=== PATIENT | male | born 1990 | race Caucasian/White ===

== ENCOUNTER 2018-03-24 10:58 | Emergency (ER) | payer OTHER ==
[2018-03-24] MEDS ORDERED: NS 0.9% 1000 ML* 1,000 ML IV ONE (11:26)
[2018-03-24] MEDS ORDERED: Morphine INJ* 4 MG/ML 1 ML CARPUJECT IV ONE (11:26)
[2018-03-24 11:57] LABS: ABS Basophils 0 10^3/ul (0-0.2); ABS Eosinophils 0 10^3/ul (0-0.6); ABS Monocytes 0.6 10^3/ul (0-0.8); ABS Neutrophils 11.5 10^3/ul (1.5-7.7); ABS Nucleated RBC 0 10^3/ul; Eosinophil % 0.3 % (0-6); Hematocrit 45 % (42-52); Hemoglobin 15.4 g/dl (14.0-18.0); Lymphocyte % 7.5 % (25-47); Mean Corpuscular HGB Conc 34 g/dl (31-36); Mean Corpuscular Hemoglobin 30 pg (27-31); Mean Corpuscular Volume 88 fL (80-94); Mean Platelet Volume 7.2 um3 (7.4-10.4); Nucleated Red Blood Cells % 0; Platelet Count 331 10^3/ul (150-450); Red Blood Count 5.11 10^6/ul (4.0-5.4); Red Cell Distribution Width 14 % (10.5-15); White Blood Count 13.1 10^3/ul (3.5-10.8)
[2018-03-24 12:15] LABS: EGFR Non-African American 125.9 (>60)
[2018-03-24] MEDS ORDERED: Morphine VIAL* 4 MG/ML VIAL (1 ml vial) IV ONE (12:15)
[2018-03-24] MEDS ORDERED: Iohexol 300* (CONTRAST) 10 ML SDV IV ONE (12:33)
--- NOTE | 2018-03-24 13:14 | RAD ---
HISTORY: Fall COMPARISONS: None TECHNIQUE: Multiple contiguous axial CT scans were obtained of the head without intravenous contrast. FINDINGS: HEMORRHAGE/INFARCT: There is no hemorrhage or acute infarct. MASSES/SHIFT: There is no mass or shift. EXTRA-AXIAL SPACES: There are no extra-axial fluid collections. SULCI AND VENTRICLES: The sulci and ventricles are normal in size and position for the patient's stated age. CEREBRUM: There are no focal parenchymal abnormalities. BRAINSTEM: There are no focal parenchymal abnormalities. CEREBELLUM: There are no focal parenchymal abnormalities. VESSELS: The vessels are grossly normal. PARANASAL SINUSES: The paranasal sinuses are clear. ORBITS: The orbits are unremarkable. BONES AND SOFT TISSUE: No bone or soft tissue abnormalities are noted. OTHER: None IMPRESSION: NO ACUTE INTRACRANIAL PATHOLOGY.
--- NOTE | 2018-03-24 13:31 | RAD ---
HISTORY: Fall COMPARISONS: None TECHNIQUE: Multiple contiguous axial CT scans were obtained of the cervical spine without intravenous contrast, with coronal and sagittal multiplanar reformations. FINDINGS: BRAIN: The visualized brain is unremarkable CENTRAL CANAL: Evaluation of the central canal is limited on CT technique, however there is no obvious canalicular mass or epidural hemorrhage. ALIGNMENT: There is straightening of the normal cervical lordosis. VERTEBRAL BODIES: The odontoid process is intact. The atlantoaxial intervals are symmetric. The vertebral bodies are normal in attenuation, without fracture. JOINTS: There is no subluxation or dislocation MUSCULATURE: Unremarkable INTERVERTEBRAL DISCS: The intervertebral disc spaces are relatively preserved in height. AXIAL IMAGES: On axial images, there is no osseous neural foraminal narrowing or central canal stenosis. SOFT TISSUES: The visualized soft tissues of the neck are unremarkable. The prevertebral fat stripe is preserved. OTHER: None. IMPRESSION: NO ACUTE OSSEOUS INJURY OF THE CERVICAL SPINE
--- NOTE | 2018-03-24 13:44 | RAD ---
INDICATION: Fall from 15 feet. COMPARISON: No relevant prior exams available on the [facility] [place] PACS for comparison. TECHNIQUE: Multidetector CT images were obtained from the lung apices to the ischial tuberosities with 140 mL Omnipaque 300 IV contrast. No oral contrast administered. CHEST REPORT: Negative for pulmonary contusion, pleural effusion, or pneumothorax. 1.1 cm maximum dimension nodule at the apical posterior segment of the LEFT upper lobe anteriorly with a prominent feeding pulmonary artery and draining vein is suspicious for a potential AV malformation. Small focus of calcification within the nodule was suggested may represent a hamartoma. 0.4 cm noncalcified nodule at the lateral basal segment of the LEFT lower lobe is low suspicion based on small size and location. Negative for mediastinal hematoma or pericardial effusion. Negative for cardiomegaly. Accounting for motion artifact there is no abnormality of the thoracic aorta. Negative for thoracic lymphadenopathy. Negative for sternal, rib, or other thoracic fracture within the [id number]. Normal articular alignment. Negative for superficial soft tissue plane hematoma. CHEST IMPRESSION: 1. No CT evidence for traumatic thoracic injury. 2. LEFT upper lobe nodule while nonspecific may represent a hamartoma or AV malformation. As the nodule is borderline in size for assessment with PET CT consider reassessment with noncontrast CT in 3 months time in absence of prior exams to document stability with none available on the [facility] [place] PACS. ABDOMEN PELVIS REPORT: The liver, gallbladder, pancreas, and spleen are unremarkable. Small splenule approximating the posterior margin of the spleen. No CT abnormality of the unopacified upper GI, small bowel, appendix visualized lateral to the cecum, or colon evident. Negative for free intraperitoneal fluid or air. Negative for hernias. Normal adrenal glands. Unremarkable kidneys with symmetric nephrograms and pyelograms. Unremarkable nondilated ureters and partially distended urinary bladder. Negative for lymphadenopathy. Unremarkable abdominal aorta and iliac arteries. Physiologic distention of the IVC. Negative for retroperitoneal or superficial soft tissue hematoma. No acute fracture evident. Negative for pelvic joint diastases. Bilateral L4 spondylolysis which appears chronic with associated grade 1 L4-L5 anterolisthesis. Advanced L4-L5 disc space narrowing with features consistent with chronic degenerative spondylosis including vacuum disc phenomenon, reactive endplate sclerosis, and mild osteophytosis. In addition to uncovering of the L4-L5 intervertebral disc there is suggestion of a broad dorsal disc extrusion with cephalad extension which results in moderately severe bilateral foraminal stenosis. Negative for significant resulting central canal stenosis. ABDOMEN PELVIS IMPRESSION: 1. No evidence for abdominal pelvic traumatic visceral injury or fracture. 2. Bilateral L4 spondylolysis which appears chronic with associated grade 1 L4-L5 anterolisthesis. Advanced L4-L5 disc space narrowing with features consistent with chronic degenerative spondylosis including vacuum disc phenomenon, reactive endplate sclerosis, and mild osteophytosis. In addition to uncovering of the L4-L5 intervertebral disc there is suggestion of a broad dorsal disc extrusion with cephalad extension which results in moderately severe bilateral foraminal stenosis.
--- NOTE | 2018-03-24 14:25 | RAD ---
HISTORY: Fall, shoulder pain COMPARISONS: None VIEWS: 4, Frontal internal rotation, external rotation, outlet, and axillary views of the left shoulder FINDINGS: BONE DENSITY: Normal. BONES: There is no displaced fracture. JOINTS: There is no arthropathy. ALIGNMENT: There is no dislocation. SOFT TISSUES: Unremarkable. OTHER FINDINGS: None. IMPRESSION: NO ACUTE OSSEOUS INJURY. IF SYMPTOMS PERSIST, RECOMMEND REPEAT IMAGING.
[2018-03-24] MEDS ORDERED: oxyCODONE/Acetamin 5/325 MG* TAB PO ONE ×2 (14:27→15:42)
[2018-03-24] MEDS ORDERED: Ketorolac INJ* 30 MG/ML 1 ML VIAL IV PUSH ONE (14:27)
[2018-03-24] MEDS ORDERED: Lidocaine PATCH 5%* 1 PATCH TRANSDERM ONE (15:42)
[2018-03-24 17:15] VITALS: BP 140/81
[2018-03-24] MEDS ORDERED: Lidocaine Patch REMOVE* 1 NOTE MISC SCH (21:00)
--- NOTE | 2018-03-27 08:41 | ED ---
Tino Ludwig Stephanie, scribed for Gautam Solano MD on 03/24/18 at 1138 . Back Pain - HPI Summary HPI Summary: The pt is a 28 y/o M presenting to the ED with c/o back pain that began at 10: 00 s/p fall from height of about 15 ft. The pt landed on his back. Symptoms include pain over L shoulder. He denies head trauma, neck pain or LOC. His pain is aggravated by deep breaths. - History of Current Complaint Chief Complaint: EDBackInjuryPain Stated Complaint: BACK INJURY Time Seen by Provider: 03/24/18 11:10 Hx Obtained From: Patient Onset/Duration: Sudden Onset, Still Present Onset/Duration: Started Hours Ago, Started Weeks Ago, Traumatic, Still Present Timing: Constant Back Pain Location: Is Discrete @ - back and L shoulder Severity Currently: Severe Pain Intensity: 10 Pain Scale Used: 0-10 Numeric Aggravating Symptom(s): Movement, Other - deep breaths Alleviating Symptom(s): Nothing Associated Signs And Symptoms: Positive: Swelling - Allergies/Home Medications Allergies/Adverse Reactions: Allergies Allergy/AdvReac Type Severity Reaction Status Date / Time No Known Allergies Allergy Verified 03/24/18 11:05 Home Medications: Home Medications NK [No Home Medications Reported] 03/24/18 [History Confirmed 03/24/18] PMH/Surg Hx/FS Hx/Imm Hx Sensory History: Denies: Hx Legally Blind EENT History: Denies: Hx Deafness - Surgical History Surgery Procedure, Year, and Place: NONE Infectious Disease History: No Infectious Disease History: Denies: Traveled Outside the [place] in Last 30 Days - Family History Known Family History: Negative: Renal Disease - Social History Occupation: Employed Full-time Lives: With Family Hx Substance Use: No Substance Use Type: Reports: None Hx Tobacco Use: Yes Smoking Status (MU): Current Every Day Smoker Have You Smoked in the Last Year: Yes Review of Systems Negative: Fever, Chills Negative: Erythema Negative: Sore Throat Negative: Chest Pain Negative: Shortness Of Breath, Cough Negative: Abdominal Pain, Vomiting, Nausea Negative: dysuria, hematuria Musculoskeletal: Negative - neck pain, head trauma Positive: Other - back pain, L shoulder pain. Negative: Myalgia, Edema Negative: Rash Neurological: Negative - dizziness, LOC All Other Systems Reviewed And Are Negative: Yes Physical Exam - Summary Physical Exam Summary: Constitutional: Well-developed, Well-nourished, Alert. (-) Distressed Skin: Warm, Dry HENT: Normocephalic; Atraumatic Eyes: Conjunctiva normal Neck: Musculoskeletal ROM normal neck. (-) JVD, (-) Stridor, (-) Tracheal deviation Cardio: Rhythm regular, rate normal, Heart sounds normal; Intact distal pulses; The pedal pulses are 2+ and symmetric. Radial pulses are 2+ and symmetric. (-) Murmur Pulmonary/Chest wall: Effort normal. (-) Respiratory distress, (-) Wheezes, (-) Rales Abd: Soft, (-) Tenderness, (-) Distension, (-) Guarding, (-) Rebound Musculoskeletal: Superior L shoulder swollen over superior scapula. Decreased ROM at shoulder, decreased flexion and abduction. Tender to palpation at shoulder. Tender to palpation at L lateral and posterior upper ribs. Lymph: (-) Cervical adenopathy Neuro: Alert, Oriented x3 Psych: Mood and affect Normal Triage Information Reviewed: Yes Vital Signs On Initial Exam: Initial Vitals Temp Pulse Resp BP Pulse Ox 98 F 82 16 132/79 99 03/24/18 11:02 03/24/18 11:02 03/24/18 11:02 03/24/18 11:02 03/24/18 11:02 Vital Signs Reviewed: Yes Diagnostics - Vital Signs Vital Signs Temp Pulse Resp BP Pulse Ox 03/24/18 11:02 98 F 82 16 132/79 99 - Laboratory Result Diagrams: 03/24/18 11:42 03/24/18 11:42 Lab Statement: Any lab studies that have been ordered have been reviewed, and results considered in the medical decision making process. - Radiology CXR Radiology Interpretation Completed By: Radiologist - NO ACUTE OSSEOUS INJURY. IF SYMPTOMS PERSIST, RECOMMEND REPEAT IMAGING. ED physician has reviewed this report. - CT Brain CT Interpretation: No Acute Changes CT Interpretation Completed By: Radiologist - NO ACUTE INTRACRANIAL PATHOLOGY. ED physician has reviewed this report. Cervical Spine CT Interpretation: No Acute Changes CT Interpretation Completed By: Radiologist - NO ACUTE OSSEOUS INJURY OF THE CERVICAL SPINE. ED physician has reviewed this report. Chest/Abd/Pelvis CT Interpretation: Positive (See Comments) CT Interpretation Completed By: Radiologist - CHEST IMPRESSION: 1. No CT evidence for traumatic thoracic injury. 2. LEFT upper lobe nodule while nonspecific may represent a hamartoma or AV malformation. As the nodule is borderline in size for assessment with PET CT consider reassessment with noncontrast CT in 3 months time in absence of prior exams to document stability with none available on the [facility] [place]. ABDOMEN PELVIS IMPRESSION: 1. No evidence for abdominal pelvic traumatic visceral injury or fracture. 2. Bilateral L4 spondylolysis which appears chronic with associated grade 1 L4-L5 anterolisthesis. Advanced L4-L5 disc space narrowing with features consistent with chronic degenerative spondylosis including vacuum disc phenomenon, reactive endplate sclerosis, and mild osteophytosis. In addition to uncovering of the L4-L5 intervertebral disc there is suggestion of a broad dorsal disc extrusion with cephalad extension which results in moderately severe bilateral foraminal stenosis. ED physician has reviewed this report. - EKG 11:37 Cardiac Rate: NL EKG Rhythm: Sinus Rhythm - [address] Segment: Normal Ectopy: None Re-Evaluation - Re-Evaluation First Eval Re-Evaluation Time: 16:58 Change: Improved - The pt is more comfortable at this time. ED physician discussed lung nodule finding with the pt. ED physician discussed plan of discharge and the pt understands and agrees. Back Pain Course/Dx - Diagnoses Provider Diagnoses: Injury of left rotator cuff, Lung nodule, Contusion of thoracic wall Discharge - Sign-Out/Discharge Documenting (check all that apply): Discharge/Admit/Transfer - Discharge - Discharge Plan Condition: Stable Disposition: HOME Patient Education Materials: Rotator Cuff Injury (ED), Pulmonary Nodules (ED) Referrals: [facility] [Outside] - 3 Days Gordon Givens MD [Medical Doctor] - 2 Days Additional Instructions: Return to the ED for new or worsening symptoms. The documentation as recorded by the Tino ochoa Stephanie accurately reflects the service I personally performed and the decisions made by , Gautam Solano MD.
== END 2018-03-24 17:13 | disposition home or self-care (01) ==
LOC: ED 10:58
DX: S20.20XA Contusion of thorax, unspecified, initial encounter (principal); S46.002A Unspecified injury of muscle(s) and tendon(s) of the rotator cuff of left shoulder, initial encounter; W17.89XA Other fall from one level to another, initial encounter; Y92.9 Unspecified place or not applicable; R91.1 Solitary pulmonary nodule; M47.816 Spondylosis without myelopathy or radiculopathy, lumbar region; M25.78 Osteophyte, vertebrae; M48.061 Spinal stenosis, lumbar region without neurogenic claudication; F17.200 Nicotine dependence, unspecified, uncomplicated
CPT/HCPCS: 36415; 70450; 71260; 72125; 74177; 80053; 83605; 85025; 86850; 86900; 86901; 93005; 96374; 96375; 96376; 99282; A9270-GY; J1885; J2270; Q9967